=== PATIENT | female | born 1955 | race Two or more races ===

== ENCOUNTER → 2022-03-24 | Outpatient (REF) | payer BC | LOC: M LAB REF 17:19 | PROVIDERS: ATTEND Ophthalmology | DX: D23.112 Other benign neoplasm of skin of right lower eyelid, including canthus (principal); L82.1 Other seborrheic keratosis ==

== ENCOUNTER → 2024-09-19 | Outpatient (CLI) | payer MEDICARE, BC ==
[~2024-09-19] MED LIST: AMLO2.5T3; ANAS1TAB2 PO; AZO-95TA3 PO; CENTCHW3 PO; POTA10CA70; PRIL20TA2 PO; ROSU10TA61; VALS160T3
== END ==
LOC: M ONCR 14:34
PROVIDERS: ATTEND General Practice
DX: D05.11 Intraductal carcinoma in situ of right breast (principal); Z17.0 Estrogen receptor positive status [ER+]; Z17.21 Progesterone receptor positive status; Z98.890 Other specified postprocedural states; Z15.09 Genetic susceptibility to other malignant neoplasm; Z90.49 Acquired absence of other specified parts of digestive tract; Z98.51 Tubal ligation status; Z80.3 Family history of malignant neoplasm of breast; Z80.41 Family history of malignant neoplasm of ovary; Z80.6 Family history of leukemia; Z80.0 Family history of malignant neoplasm of digestive organs; Z80.8 Family history of malignant neoplasm of other organs or systems; Z88.5 Allergy status to narcotic agent; Z79.811 Long term (current) use of aromatase inhibitors; Z79.899 Other long term (current) drug therapy

== ENCOUNTER → 2024-10-15 | Outpatient (RCR) | payer MEDICARE, BC | LOC: M ONCR 09-26 10:42 | PROVIDERS: ATTEND General Practice | DX: Z51.0 Encounter for antineoplastic radiation therapy (principal); D05.11 Intraductal carcinoma in situ of right breast ==

== ENCOUNTER 2024-11-07 14:52 | Outpatient (RCR) | payer MEDICARE, BC ==
[2024-11-07] MEDS ORDERED: NYST-38 PO (15:55)
== END 2024-11-14 ==
LOC: M ONCR 14:52
PROVIDERS: ATTEND General Practice
DX: Z51.0 Encounter for antineoplastic radiation therapy (principal); D05.11 Intraductal carcinoma in situ of right breast

== ENCOUNTER → 2024-12-06 | Outpatient (CLI) | payer MEDICARE, BC ==
[~2024-12-06] MED LIST changes: +NYST-38 PO
== END ==
LOC: M RAD 08:29
PROVIDERS: ATTEND Surgery
DX: K76.89 Other specified diseases of liver (principal); R16.0 Hepatomegaly, not elsewhere classified; N28.9 Disorder of kidney and ureter, unspecified; Z15.09 Genetic susceptibility to other malignant neoplasm

== ENCOUNTER → 2025-05-10 | Outpatient (CLI) | payer MEDICARE, BC ==
[~2025-05-10] MED LIST changes: +EFFE75CA2 PO
== END ==
LOC: M ONCR 09:38
PROVIDERS: ATTEND General Practice
DX: D05.12 Intraductal carcinoma in situ of left breast (principal); Z15.09 Genetic susceptibility to other malignant neoplasm; Z17.0 Estrogen receptor positive status [ER+]; Z17.21 Progesterone receptor positive status; Z98.890 Other specified postprocedural states; Z92.3 Personal history of irradiation; Z79.811 Long term (current) use of aromatase inhibitors; Z79.899 Other long term (current) drug therapy; Z88.5 Allergy status to narcotic agent